=== PATIENT | male | born 2000 | race Hispanic/Latino ===

== ENCOUNTER 2024-02-14 10:01 | Observation (INO) | payer SELFPAY ==
[~2024-02-14] VITALS: Ht 170.2 cm; Wt 90.7 kg
[2024-02-14] MEDS: SODIUM CHLORIDE 0.9% 1000ML 1,000 ML IV SCH ×2 (10:30→15:00)
[2024-02-14] MEDS ORDERED: ONDANSETRON HCL INJ 2MG/ML 2ML 2 MG/ML VIAL IV PRN (10:30)
[2024-02-14 13:04] VITALS: PULSE 61; RESP 18; TEMP 98.1
[2024-02-14 13:44] LABS: ALBUMIN 3.6 g/dL (3.5-5.0); ALBUMIN/GLOBULIN RATIO 1.4 (0.8-2.0); BILIRUBIN,TOTAL 0.3 mg/dL (0.2-1.2); CALCIUM 8.4 mg/dL (8.4-10.2); CREATININE, SERUM 0.92 mg/dL (0.72-1.25); TOTAL PROTEIN 6.1 g/dL (6.5-8.1)
[2024-02-14 16:34] VITALS: BP 133/60; PULSE 80; RESP 20; TEMP 97.7; O2SAT 100
[2024-02-14 17:54] VITALS: BP 133/60; PULSE 80; RESP 20; TEMP 97.7; O2SAT 100
[2024-02-14 17:58] VITALS: BP 133/60; PULSE 80; RESP 20; TEMP 97.7; O2SAT 100
[2024-02-14] MEDS ORDERED: ACETAMINOPHEN 325 MG TAB PO PRN (19:00)
[2024-02-14 19:11] LABS: MAGNESIUM 2.3 MG/DL (1.3-2.1); PHOSPHORUS 4.8 MG/DL (2.3-4.7)
[2024-02-14 20:00] VITALS: BP 114/59; PULSE 62; RESP 17; TEMP 97.7; O2SAT 100
[2024-02-15] VITALS: BP 127/72; PULSE 63; RESP 18; TEMP 97.8; O2SAT 100
[2024-02-15 00:50] VITALS: BP 127/72; PULSE 63; RESP 18; TEMP 97.8
[2024-02-15 01:24] LABS: BILIRUBIN,URINE NEGATIVE (NEGATIVE); CLARITY,URINE CLEAR (CLEAR); COLOR,URINE YELLOW (YELLOW); GLUCOSE, URINE NEGATIVE (NEGATIVE); KETONES,URINE NEGATIVE (NEGATIVE); LEUKOCYTE ESTERASE ,URINE NEGATIVE (NEGATIVE); NITRITE,URINE NEGATIVE (NEGATIVE); PH,URINE 6 (5 - 7); PROTEIN,URINE DIPSTICK NEGATIVE (NEGATIVE); URINE UROBILINOGEN 0.2 mg/dL (0.2 - 1)
[2024-02-15 01:30] LABS: RBC,URINE 0-5 /HPF (0-5); WBC,URINE (MAN) 0-5 /HPF (0-5)
[2024-02-15 01:31] LABS: BACTERIA,URINE FEW /HPF; EPITHELIAL CELLS,URINE FEW /LPF
[2024-02-15 01:32] LABS: AMPHETAMINES SCREEN,URINE NEGATIVE (NEGATIVE); BENZODIAZEPINES SCREEN,URINE NEGATIVE (NEGATIVE); CANNABINOIDS SCREEN,URINE NEGATIVE (NEGATIVE); METHADONE SCREEN, URINE NEGATIVE (NEGATIVE); OPIATES SCREEN,URINE NEGATIVE (NEGATIVE); PHENCYCLIDINE SCREEN,URINE NEGATIVE (NEGATIVE)
[2024-02-15 04:00] VITALS: BP 115/60; PULSE 76; RESP 18; TEMP 97.6; O2SAT 100
[2024-02-15 06:37] LABS: BASOPHILS # (AUTO) 0.1 (0.0-0.1); BASOPHILS % 0.9 % (0.0-1.0); EOSINOPHILS # (AUTO) 0.2 (0.0-0.4); EOSINOPHILS % 3.5 % (0.0-6.0); HEMATOCRIT 41.5 % (38.2-49.6); HEMOGLOBIN 13.3 g/dL (14.0-18.0); LYMPHOCYTES # (AUTO) 2.4 (1.0-3.2); MEAN CORPUSCULAR HEMOGLOBIN 30.4 pg (28-32); MONOCYTES # (AUTO) 0.6 (0.2-0.8); MONOCYTES % 8.6 % (4.4-11.3); NEUTROPHILS # (AUTO) 3.2 (2.1-6.9); NEUTROPHILS % 49.7 % (38.7-80.0); PLATELET COUNT 217 x10e3/uL (140-360); RED BLOOD COUNT 4.37 x10e6/uL (4.3-5.7); RED CELL DISTRIBUTION WIDTH 11.9 % (11.7-14.4); WHITE BLOOD COUNT 6.52 x10e3/uL (4.8-10.8)
[2024-02-15 07:05] LABS: ALBUMIN 3.7 g/dL (3.5-5.0); ALBUMIN/GLOBULIN RATIO 1.3 (0.8-2.0); ANION GAP 11.1 mmol/L (8-16); BILIRUBIN,TOTAL 0.3 mg/dL (0.2-1.2); CALCIUM 8.9 mg/dL (8.4-10.2); CREATININE, SERUM 0.94 mg/dL (0.72-1.25); POTASSIUM 4.1 mmol/L (3.5-5.1); TOTAL PROTEIN 6.5 g/dL (6.5-8.1)
[2024-02-15 07:50] VITALS: BP 102/61; PULSE 64; RESP 18; TEMP 98; O2SAT 100
[2024-02-15 08:02] VITALS: BP 102/61; PULSE 64; RESP 18; TEMP 98.2; O2SAT 100
[2024-02-15] MEDS: SODIUM CHLORIDE 0.9% 1000ML 1,000 ML IV SCH (09:00)
[2024-02-15 11:29] VITALS: BP 125/73; PULSE 59; RESP 21; TEMP 97.9; O2SAT 98
[2024-02-16] MEDS ORDERED: HYDROXYZINE HCL25 MG PO (08:05)
== END 2024-02-15 12:50 | disposition home or self-care (01) ==
LOC: ER 10:13 → ERHOLD 10:19 → MED/SURG2 13:50
PROVIDERS: ADMIT Family Medicine Adult Medicine; ATTEND Family Medicine Adult Medicine
DX: M62.82 Rhabdomyolysis (principal); E86.0 Dehydration; R00.2 Palpitations; R19.7 Diarrhea, unspecified
CPT/HCPCS: 36415 ×2; 80053 ×2; 80307; 81001; 82550 ×2; 83735; 84100; 84443; 85025; 93005; 99284; G0378 ×2; J7030 ×2